=== PATIENT | male | born 1970 | race Caucasian/White ===

== ENCOUNTER 2017-02-16 09:31 | Emergency (ER) | payer MEDICARE, OTHER ==
[~2017-02-16] VITALS: Ht 172.7 cm; Wt 90.7 kg
[2017-02-16 09:38] VITALS: BP 129/76
--- NOTE | 2017-02-16 11:01 | NUR ---
REFUSED ORTHO GLASS APPLICATION MADE AWARE
== END 2017-02-16 11:14 | disposition home or self-care (01) ==
LOC: ER 09:33
DX: S62.399A Other fracture of unspecified metacarpal bone, initial encounter for closed fracture (principal); Z88.0 Allergy status to penicillin; W05.1XXA Fall from non-moving nonmotorized scooter, initial encounter; Y92.89 Other specified places as the place of occurrence of the external cause; Y93.89 Activity, other specified; Y99.8 Other external cause status
CPT/HCPCS: 73080-TC; 73110; 73130-TC; A4606; Z7610

== ENCOUNTER 2017-05-30 07:36 | Emergency (ER) | payer MEDICARE, OTHER ==
[~2017-05-30] VITALS: Ht 172.7 cm; Wt 93.0 kg
[2017-05-30 07:40] VITALS: BP 120/78
--- NOTE | 2017-05-30 07:55 | NUR ---
MD FRIAS AT BEDSIDE
== END 2017-05-30 09:13 | disposition home or self-care (01) ==
LOC: ER 07:37
DX: J06.9 Acute upper respiratory infection, unspecified (principal); Z88.0 Allergy status to penicillin; Z85.21 Personal history of malignant neoplasm of larynx; Z98.890 Other specified postprocedural states
CPT/HCPCS: 71010; 99283; A4606; Z7610